=== PATIENT | female | born 2000 | race Caucasian/White ===

== ENCOUNTER 2023-08-25 21:52 | Inpatient (IN) | payer BC ==
[~2023-08-25] VITALS: Ht 165.1 cm; Wt 110.9 kg
[2023-08-25] MEDS ORDERED: LR 1,000 ML IV PRN (22:00)
--- NOTE | 2023-08-25 22:00 | NUR ---
PATIENT ARRIVED TO UNIT VIA WHEELCHAIR WITH SIGNIFICANT OTHER. PATIENT STATES HER WATER BROKE AROUND 1900 WITH CLEAR FLUID. PATIENT DENIES CONTRACTIONS. PATIENT CHANGED INTO HOSPITAL GOWN. AMNIOSWAB POSITIVE. SVE NOTED. PATIENT EDUCATED ON PLAN OF CARE. QUESTIONS INVITED AND ANSWERED.
[2023-08-25] MEDS ORDERED: UNISOM25 MG PO (22:17)
[2023-08-25] MEDS ORDERED: PRENATAL TABLET PO (22:17)
[2023-08-25] MEDS ORDERED: PROTONIX20 MG PO (22:28)
[2023-08-25 22:30] VITALS: BP 138/77; PULSE 122; TEMP 98.2
[2023-08-25] MEDS ORDERED: LR & Oxytocin 500 ML IV SCH (22:30)
[2023-08-25] MEDS ORDERED: LR 1,000 ML IV SCH (22:30)
[2023-08-25 23:00] VITALS: BP 119/83; PULSE 127
--- NOTE | 2023-08-25 23:25 | NUR ---
2325- PATIENT AMBULATORY IN ROOM. 0005- PATIENT IN BED SEMI FOWLERS POSITION. PLAN OF CARE EXPLAINED TO PATIENT AND SPOUSE. QUESTIONS INVITED AND ANSWERED.
[2023-08-25 23:51] LABS: HEMOGLOBIN 12.1 g/dl (12.5-16.0); MEAN CELL VOLUME 87 fl (80.0-100.0); MEAN CORPUSCULAR HEMOGLOBIN 29 pg (27-31); MEAN CORPUSCULAR HGB CONC 33 g/dl (33.0-37.0); MEAN PLATELET VOLUME 11.7 fl (7.4-10.4); PLATELET COUNT 268 K/mm3 (130-400); RED BLOOD COUNT 4.25 M/mm3 (4.10-5.30); REDCELL DISTRIBUTION WIDTH-CV 14.1 % (11.5-14.5)
[2023-08-25 23:54] LABS: HEMATOCRIT 36.9 % (37.0-47.0)
[2023-08-26] VITALS (51 sets, daily range): BP systolic 96–150; BP diastolic 55–92; PULSE 72–126; TEMP 97.6–98.7
[2023-08-26 00:10] LABS: BAND 5 % (0-10); LYMPHOCYTE 12 % (20.0-51.0); NEUTROPHILS 78 % (42.0-75.2)
[2023-08-26 00:11] LABS: PLATELET ESTIMATE NORMAL (NORMAL)
[2023-08-26 00:15] LABS: ALBUMIN 2.5 g/dL (3.5-5.0); BILIRUBIN,TOTAL 0.2 mg/dL (0.2-1.2); CALCIUM 9.1 mg/dL (8.4-10.2); CREATININE, serum 0.65 mg/dL (0.57-1.11); POTASSIUM 4.7 mEq/L (3.5-4.5); TOTAL PROTEIN 7.1 g/dl (6.2-8.1)
--- NOTE | 2023-08-26 03:23 | NUR ---
0300- PATIENT EDUCATED ON NO CHANGE WITH SVE SINCE ADMISSION AND DR. MCCLELLAND WANTING TO START PITOCIN IF NO CHANGE WAS MADE. PATIENT REQUESTED TIME TO TALK TO SIGNIFICANT OTHER. PATIENT AND SPOUSE EDUCATED ON RISKS AND BENEFITS OF STARTING/WAITING ON PITOCIN ADMINISTRATION. 0310- PATIET REQUESTED TO WAIT ON STARTING THE PITOCIN AND WILL AMBULATE IN ROOM AND SIT ON BIRTHING BALL. 0315- PATIENT AMBULATORY IN ROOM.
--- NOTE | 2023-08-26 04:00 | NUR ---
0400- PATIENT SEMIFOWLERS POSITION. STATES SHE IS FEELING LIKE SHE IS HAVING "MORE CRAMPING THAN WHEN SHE ARRIVED TO THE HOSPTIAL BUT ISN'T SURE IF THEY ARE CONTRACTIONS". EFMX2 APPLIED. PLAN OF CARE EXPLAINED TO PATIENT AND SPOUSE.
--- NOTE | 2023-08-26 04:30 | NUR ---
0430- PATIENT AMBULATORY IN ROOM AND USING RESTROOM 0457- EFMX2 APPLIED. PATIENT SITTING IN SEMI FOWLERS. PLAN OF CARE EXPLAINED TO PATIENT AND SPOUSE. QUESTIONS INVITED AND ANSWERED.
--- NOTE | 2023-08-26 07:10 | NUR ---
CALLED DR EASON TO UPDATE ON PT. PT CAME IN LAST NIGHT SROM'D AT 1900 CLEAR FLUID. PT REFUSED FLUID AND PITOCIN THROUGH THE NIGHT. THIS MORNING WE DISCUSSED STARTING SOME FLUID, DISCUSSED PROLONGED RUPTURE AND WHAT OUR PROTOCAL IS AND WHY. ALSO DISSCUSSED STARTING PITOCIN TO GET LABOR GOING, POLICY IS GOING UP 2 EVERY 15 MINUTES, BUT MAYBE WE COULD TRY GOING SLOWER AT 2 EVERY 30 MINUTES. PT WAS VERY AGREEABLE TO THAT. DR EASON SAID THAT SOUNDS GOOD AND HE WOULD COME SEE HER SHORTLY.
--- NOTE | 2023-08-26 08:15 | NUR ---
0794- 1912 DIFFICULTY TRACING CX PATTERN DUE TO MATERNAL POSITION AND MOVEMENT.
--- NOTE | 2023-08-26 09:10 | NUR ---
NEW IV WAS PLACED IN RF DUE TO IV IN LH NOT PATENT. DURING THIS TIME PITOCIN WAS PLACED ON STAND BY. IV TUBING WAS MOVED TO RF. IV WAS NOT RESTARTED. AT 1000 PITOCIN WAS RESTART AT 2.
[2023-08-26 10:30] LABS: CALCIUM 9.5 mg/dL (8.4-10.2); CREATININE, serum 0.6 mg/dL (0.57-1.11); POTASSIUM 4.2 mEq/L (3.5-4.5)
--- NOTE | 2023-08-26 12:20 | NUR ---
DR BOBBY ON UNIT AND AT BEDSIDE INTRODUCING HIMSELF TO THE PT.
--- NOTE | 2023-08-26 12:30 | NUR ---
DR EASON CALLED TO ORDER ANCEF 2 GRAMS AT 1300 FOR PROLONGED ROM, THEN 1 GRAM Q8 UNTIL DELIVERY. DR EASON ALSO WAS TRANSFERING PT TO CARE OF DR BOBBY, WHICH HE HAD DISSCUSSED EARLIER WITH THE PT.
--- NOTE | 2023-08-26 12:45 | NUR ---
[id number] PT WAS IN THE RESTROOM.
[2023-08-26] MEDS ORDERED: ceFAZolin 2 G in Water For Injection,Sterile 20 ML IV ONE (13:00)
--- NOTE | 2023-08-26 13:30 | NUR ---
[id number] DIFFICULTY TRACING CX DUE TO MATERNAL POSITION. 1415- PT ASSISTED TO THE BATHROOM. PT SPENT APPROX 30 MINUTES IN THE BATHROOM. RN THEN OFFERED THE BEDSIDE TOILET FOR PT TO LABOR ON. PT AGREED AND MOVED TO BEDSIDE.
[2023-08-26] MEDS ORDERED: Acetaminophen 500 MG TAB PO PRN (15:45)
--- NOTE | 2023-08-26 20:15 | NUR ---
PT TO THE BATHROOM PRIOR TO PROCEDURE. KASSIDY COSTA AT BEDSIDE AT 2009. PREPPED PATIENT FOR PROCEDURE. PT SITTING UP ON BEDSIDE. 2015: SINGLE SHOT PER KASSIDY COSTA. PT TOLERATED PROCEDURE VERY WELL. PT REPOSITIONED TO WEDGE LEFT. NO OTHER CONERNS WITH THIS PATIENT AT THIS TIME.
[2023-08-26] MEDS ORDERED: ROPivacaine PF 0.2% 200 ML IV ONE (20:20)
[2023-08-26] MEDS ORDERED: diphenhydrAMINE 50 MG/ML 1 ML VIAL IV PRN (20:45)
[2023-08-26] MEDS ORDERED: Ondansetron 4 MG/2 ML VIAL IV PRN (20:45)
[2023-08-26] MEDS ORDERED: ePHEDrine 50 MG/10 ML VIAL IV PRN (20:45)
[2023-08-26] MEDS ORDERED: diphenhydrAMINE 25 MG CAP PO PRN (20:45)
[2023-08-26] MEDS ORDERED: Naloxone 0.4 MG/ML VIAL IV PRN (20:45)
[2023-08-26] MEDS ORDERED: ceFAZolin 1 G in Water For Injection,Sterile 10 ML IV SCH (22:00)
[2023-08-27] VITALS (20 sets, daily range): BP systolic 106–143; BP diastolic 52–80; PULSE 76–136; TEMP 97.9–98.9
--- NOTE | 2023-08-27 01:45 | NUR ---
0109: NOTIFIED PHYSICIAN OF PT READY FOR DELIVERY. 0122: ARRIVED TO UNIT AND IN ROOM FOR DELIVERY. BED BROKEN DOWN, GOWNED AND GLOVED. 0127: OF VIABLE FEMALE . STIMULATED AND HELD PER FOR DELAYED CORD CLAMPING. CORD STOPPED PULSATING AND CORD WAS CLAMPED X2 AND CUT BY FOB. WAS PLACED ON MATERNAL ABDOMEN AND CARE OF INFANT WAS ASSUMED BY FAUSTINA,RN, NURSERY NURSE. CORD BLOOD WAS OBTAINED PER AND PASSED OFF TO THIS RN AND SENT TO LAB. PITOCIN STOPPED PER HOSPITAL PROTOCOL. 0131: OF INTACT PLACENTA. PITOCIN STARTED PER HOSPITAL PROTOCOL AT 333ML/HR. FUNDAL MASSAGE PER . UTERINE TONE FIRM. REPAIR OF 2ND DEGREE VAGINAL LACERATION PER . STRAIGHT CATH PER ; 150ML OUT. PT REPOSITIONED TO SEMIWLER, INFANT REMAINS WITH MOTHER AT THIS TIME. ICE PACK TO PERINEUM. 0145: RECOVERY BEGINS AT THIS TIME.
[2023-08-27] MEDS ORDERED: Loratadine 10 MG TAB PO PRN (02:00)
[2023-08-27] MEDS ORDERED: Magnes Hydrox (MOM) 80 MG/ML 30 ML CUP PO PRN (02:00)
[2023-08-27] MEDS ORDERED: Phenylephrine/Mineral Oil/Petrolatum 57 GM TUBE RC PRN (05:30)
[2023-08-27] MEDS ORDERED: Ibuprofen 800 MG TAB PO SCH (05:30)
[2023-08-27] MEDS ORDERED: oxyCODONE 5 MG TAB PO PRN (05:30)
[2023-08-27] MEDS ORDERED: Measles/Mumps/Rubella Virus Vaccine Live w Diluent 0.5 ML VIAL SQ SCH (05:30)
[2023-08-27] MEDS ORDERED: Mag/Al Hydrox/Simeth Susp 30 ML CUP PO PRN (05:30)
[2023-08-27] MEDS ORDERED: Witch Hazel 50% Pads Bulk TUB TP PRN (05:30)
[2023-08-27] MEDS ORDERED: Naloxone 0.4 MG/ML VIAL IV PRN (05:30)
[2023-08-27] MEDS ORDERED: Acetaminophen 500 MG TAB PO SCH (05:30)
[2023-08-27] MEDS ORDERED: Sennosides/Docusate 8.6-50 MG TAB PO SCH (08:00)
[2023-08-27] MEDS ORDERED: traZODone 50 MG TAB PO PRN (21:00)
[2023-08-28 07:15] VITALS: BP 125/75; PULSE 85; TEMP 98.7
[2023-08-28 17:30] VITALS: BP 133/82; PULSE 83; TEMP 98.5
[2023-08-28 20:00] VITALS: BP 136/68; PULSE 81; TEMP 98.3
[2023-08-29] MEDS ORDERED: Acetaminophen 500 MG TAB PO SCH
[2023-08-29 10:00] VITALS: BP 137/86; PULSE 83; TEMP 98.1
--- NOTE | 2023-08-29 11:58 | NUR ---
DISCHARGE EDUCATION COMPLETED, HEALTH HISTORY GIVEN, DISCHARGE APPOINTMENT DISCUSSED. QUESTIONS INVITED AND ANSWERED.
[2023-08-29 13:51] LABS: HIV 1/2 Antibodies Non-Reactive; HIV-1p24 Antigen Non-Reactive
[2023-08-29 21:53] LABS: HEPATITIS B SURFACE ANTIGEN Negative (Negative); HEPATITIS C VIRUS ANTIBODY Negative (Negative)
== END 2023-08-29 12:50 | disposition home or self-care (01) | DRG 807 ==
LOC: LDRO 21:52 → LDR 22:25 → OB 08-27 05:00
PROVIDERS: Obstetrics & Gynecology; ADMIT Obstetrics & Gynecology
PROC: 10E0XZZ Delivery of Products of Conception, External Approach (ICD-10-PCS; principal; 2023-08-27)
PROC: 0KQM0ZZ Repair Perineum Muscle, Open Approach (ICD-10-PCS; 2023-08-27)
DX: O99.62 Diseases of the digestive system complicating childbirth (principal); Z37.0 Single live birth; O99.214 Obesity complicating childbirth; Z3A.38 38 weeks gestation of pregnancy; K21.9 Gastro-esophageal reflux disease without esophagitis; E87.5 Hyperkalemia; O99.284 Endocrine, nutritional and metabolic diseases complicating childbirth; O69.81X0 Labor and delivery complicated by cord around neck, without compression, not applicable or unspecified; O70.1 Second degree perineal laceration during delivery
CPT/HCPCS: J0690; J2795; J7120